=== PATIENT | male | born 1965 | race Caucasian/White ===

== ENCOUNTER 2018-05-30 18:03 | Inpatient (IN) | payer BC ==
[~2018-05-30] VITALS: Ht 188 cm; Wt 85.7 kg
[2018-05-30 18:06] VITALS: BP_SYST 180
[2018-05-30] MEDS ORDERED: NACL 0.9% 1,000 ML IV ONE ×2 (18:13→21:15)
[2018-05-30] MEDS ORDERED: ONDANSETRON HCL 4 MG/2 ML VIAL IVP ONE (18:15)
[2018-05-30] MEDS ORDERED: FOLIC ACID 1 MG, THIAMINE HCL 100 MG, MAGNESIUM SULFATE 1 GM, MVI 10 ML in NACL 0.9% 1,... IV ONE (18:30)
[2018-05-30] MEDS ORDERED: THIAMINE HCL 100 MG/ML VIAL ONE (18:31)
[2018-05-30] MEDS ORDERED: FOLIC ACID 5 MG/ML VIAL IV ONE (18:31)
[2018-05-30] MEDS ORDERED: MVI 10 ML VIAL IV ONE (18:31)
[2018-05-30] MEDS ORDERED: MAGNESIUM SULFATE 1 GM/2 ML VIAL ONE (18:31)
[2018-05-30 18:46] LABS: HEMATOCRIT 39.3 % (36-54); HEMOGLOBIN 13.1 g/dL (14.0-18.0); MEAN CORPUSCULAR HEMOGLOBIN 37 pg (27-31); MEAN CORPUSCULAR HGB CONC 34 % (32-36); MEAN CORPUSCULAR VOLUME 111 fL (79.0-98.0); PLATELET COUNT (AUTO) 134 K/uL (130-430); RED BLOOD CELL COUNT(AUTO) 3.53 MIL/uL (4.2-6.2); RED CELL DISTRIBUTION WIDTH 15.6 % (9.0-15.0); WHITE BLOOD COUNT (AUTO) 5.7 K/uL (4.8-10.8)
[2018-05-30 18:51] LABS: BILIRUBIN,URINE 1+ (NEGATIVE); CLARITY/URINE SL HAZY (CLEAR); GLUCOSE,URINE NEGATIVE (NEGATIVE); KETONES,URINE NEGATIVE (NEGATIVE); LEUKOCYTE ESTERASE ,URINE NEGATIVE (NEGATIVE); NITRITE, URINE NEGATIVE (NEGATIVE); PH,URINE 6.5 (5.0-8.0); PROTEIN URINE 2+ (NEGATIVE)
[2018-05-30 18:58] LABS: INR 1.1 (0.80-1.20); PROTHROMBIN TIME 11.3 SECS (9.5-12.5)
[2018-05-30 19:02] LABS: BLOOD, URINE TRACE (NEGATIVE); UROBILINOGEN,URINE >=8 (0.2-1.0)
[2018-05-30 19:11] LABS: COLOR,URINE ORANGE (YELLOW)
[2018-05-30 19:24] LABS: CALCIUM 8.6 mg/dL (8.4-11.0); CREATININE 0.77 mg/dL (0.55-1.30); POTASSIUM 3.7 mmol/L (3.5-5.1)
[2018-05-30 19:28] LABS: TOTAL BILIRUBIN 2.1 mg/dL (0.0-1.0)
[2018-05-30] MEDS ORDERED: NS 1000 ML IV.SOLN IV ONE (19:45)
[2018-05-30] MEDS ORDERED: PIPERACILLIN/TAZO 3.38 GM in D5W 50 ML IV ONE (19:45)
[2018-05-30 19:46] LABS: BAND % (MANUAL) 11 % (0-6); BASOPHILS % (MANUAL) 0 % (0-2); EOSINOPHILS % (MANUAL) 1 % (0-7); LYMPHOCYTES % (MANUAL) 17 % (20-46); MONOCYTES % (MANUAL) 9 % (0-11)
[2018-05-30] MEDS ORDERED: PIPERACILLIN/TAZOBACTAM 3.375 GM/VIAL (ZOSYN) IV ONE (20:00)
[2018-05-30] MEDS ORDERED: LORazepam 2 MG/ML VIAL (FOR ER USE) IVP ONE (20:15)
[2018-05-30 20:17] LABS: BACTERIA,URINE FEW /HPF (None Seen); FINE GRANULAR CASTS,URINE 0-10 /LPF (None Seen); RBC,URINE 0-3 /HPF (0-3); WAXY CASTS,URINE 0-10 /LPF (None Seen)
[2018-05-30 20:18] LABS: MUCUS,URINE 1+ /LPF (None Seen)
[2018-05-30] MEDS ORDERED: chlordiazePOXIDE HCL 25 MG CAPSULE PO PRN (21:00)
[2018-05-30] MEDS ORDERED: cloNIDine HCL 0.1 MG TABLET PO PRN (21:00)
[2018-05-30] MEDS ORDERED: LACTULOSE 20 GM/30 ML UDC PO ONE (21:30)
[2018-05-30 21:43] VITALS: BP_SYST 120
[2018-05-30 22:13] LABS: BARBITURATE, URINE NEGATIVE (NEG <=200); BENZODIAZEPINE, URINE NEGATIVE (NEG <=150); CANNABINOID, URINE NEGATIVE (NEG <=50); COCAINE, URINE NEGATIVE (NEG <=150); METHAMPHETAMINES SCREEN,URINE NEGATIVE (NEG <=500); OPIATE, URINE NEGATIVE (NEG <=100); PHENCYCLIDINE SCREEN,URINE NEGATIVE (NEG <=25); UR TRICYCLIC ANTIDEPRESSANTS NEGATIVE (NEG <=300); URINE AMPHETAMINE NEGATIVE (NEG <=500); URINE METHADONE NEGATIVE (NEG <=200); URINE OXYCODONE SCREEN NEGATIVE (NEG <=100); URINE PROPOXYPHENE SCREEN NEGATIVE (NEG <=300)
[2018-05-30] MEDS: LORazepam 2 MG/ML VIAL IVP PRN (23:05)
[2018-05-31] MEDS ORDERED: PIPERACILLIN/TAZOBACTAM 3.375 GM/VIAL (ZOSYN) IV ONE (00:26)
[2018-05-31] MEDS: PIPERACILLIN/TAZO 3.375/DEX-IS 50 ML IV SCH ×5 (00:53→23:10)
[2018-05-31] MEDS: LORazepam 2 MG/ML VIAL IVP PRN (05:21)
[2018-05-31 08:28] LABS: BASOPHILS % (AUTO) 0.3 % (0.0-2.0); EOSINOPHILS % (AUTO) 0.5 % (0.0-4.0); HEMATOCRIT 35.5 % (36-54); HEMOGLOBIN 12.1 g/dL (14.0-18.0); LYMPHOCYTES # (AUTO) 0.5 K/uL (1.0-5.5); LYMPHOCYTES % (AUTO) 12.4 % (20.5-51.5); MEAN CORPUSCULAR HEMOGLOBIN 39 pg (27-31); MEAN CORPUSCULAR HGB CONC 34 % (32-36); MEAN CORPUSCULAR VOLUME 113 fL (79.0-98.0); MONOCYTES # (AUTO) 0.4 K/uL (0.0-1.0); MONOCYTES % (AUTO) 10.3 % (1.7-9.3); NEUTROPHILS # (AUTO) 3.1 K/uL (1.8-7.7); NEUTROPHILS % (AUTO) 76.5 % (40.0-70.0); PLATELET COUNT (AUTO) 125 K/uL (130-430); RED BLOOD CELL COUNT(AUTO) 3.14 MIL/uL (4.2-6.2); RED CELL DISTRIBUTION WIDTH 15.8 % (9.0-15.0)
[2018-05-31 08:39] LABS: CREATININE 0.7 mg/dL (0.55-1.30); POTASSIUM 3.6 mmol/L (3.5-5.1)
[2018-05-31 08:53] LABS: ALBUMIN 2.7 g/dL (3.4-4.8); TOTAL BILIRUBIN 2.7 mg/dL (0.0-1.0)
[2018-05-31 09:14] LABS: CALCIUM 8.5 mg/dL (8.4-11.0)
[2018-05-31] MEDS: THIAMINE HCL 100 MG TABLET PO SCH (09:25)
[2018-05-31] MEDS: FOLIC ACID 1 MG TABLET PO SCH (09:25)
[2018-05-31 13:17] VITALS: BP_SYST 142
[2018-05-31] MEDS ORDERED: LORazepam 2 MG/ML VIAL IVP PRN (15:00)
[2018-05-31 16:36] VITALS: BP_SYST 148
[2018-05-31] MEDS: FOLIC ACID 1 MG, THIAMINE HCL 100 MG, MAGNESIUM SULFATE 1 GM, MVI 10 ML in NACL 0.9% 1,... IV SCH (18:15)
[2018-05-31] MEDS: chlordiazePOXIDE HCL 25 MG CAPSULE PO SCH ×2 (18:16→23:31)
[2018-05-31] MEDS: LIPASE/PROTEASE/AMYLASE 1 CAP PO SCH (18:17)
[2018-05-31 19:00] VITALS: BP_SYST 148
[2018-05-31 20:00] VITALS: BP_SYST 148
[2018-05-31] MEDS: TEMAZEPAM 15 MG CAPSULE PO SCH (21:59)
[2018-06-01 00:32] VITALS: BP_SYST 119
[2018-06-01] MEDS: LORazepam 2 MG/ML VIAL IVP PRN ×2 (02:55→15:02)
[2018-06-01] MEDS: chlordiazePOXIDE HCL 25 MG CAPSULE PO SCH ×3 (06:00→17:57)
[2018-06-01 06:30] VITALS: BP_SYST 133
[2018-06-01] MEDS: PIPERACILLIN/TAZO 3.375/DEX-IS 50 ML IV SCH ×2 (06:58→11:48)
[2018-06-01 07:06] LABS: CALCIUM 8.5 mg/dL (8.4-11.0); CREATININE 0.68 mg/dL (0.55-1.30); POTASSIUM 3.6 mmol/L (3.5-5.1)
[2018-06-01 07:17] LABS: ALBUMIN 2.6 g/dL (3.4-4.8); TOTAL BILIRUBIN 2.1 mg/dL (0.0-1.0)
[2018-06-01 09:07] LABS: HEPATITIS A AB, IgM Negative (Negative); HEPATITIS B CORE AB, IgM Negative (Negative); HEPATITIS B SURFACE AG Negative (Negative)
[2018-06-01 09:14] VITALS: BP_SYST 133
[2018-06-01] MEDS: FOLIC ACID 1 MG TABLET PO SCH (09:17)
[2018-06-01] MEDS: THIAMINE HCL 100 MG TABLET PO SCH (09:17)
[2018-06-01] MEDS: LIPASE/PROTEASE/AMYLASE 1 CAP PO SCH ×3 (09:17→17:57)
[2018-06-01 09:19] LABS: BASOPHILS # (AUTO) 0.1 K/uL (0.0-0.2); EOSINOPHILS % (AUTO) 0.7 % (0.0-4.0); HEMATOCRIT 35.8 % (36-54); HEMOGLOBIN 12.1 g/dL (14.0-18.0); LYMPHOCYTES # (AUTO) 0.8 K/uL (1.0-5.5); LYMPHOCYTES % (AUTO) 17.3 % (20.5-51.5); MEAN CORPUSCULAR HEMOGLOBIN 39 pg (27-31); MEAN CORPUSCULAR HGB CONC 34 % (32-36); MONOCYTES # (AUTO) 0.6 K/uL (0.0-1.0); MONOCYTES % (AUTO) 12.3 % (1.7-9.3); NEUTROPHILS # (AUTO) 3.2 K/uL (1.8-7.7); NEUTROPHILS % (AUTO) 67.7 % (40.0-70.0); PLATELET COUNT (AUTO) 147 K/uL (130-430); RED BLOOD CELL COUNT(AUTO) 3.11 MIL/uL (4.2-6.2); RED CELL DISTRIBUTION WIDTH 16.2 % (9.0-15.0); WHITE BLOOD COUNT (AUTO) 4.7 K/uL (4.8-10.8)
[2018-06-01 11:48] LABS: MEAN CORPUSCULAR VOLUME 115 fL (79.0-98.0)
[2018-06-01 12:44] VITALS: BP_SYST 128
[2018-06-01] MEDS ORDERED: NICOTINE 21 MG/24 HR PATCH.TD24 TD ONE (16:15)
[2018-06-01 16:18] VITALS: BP_SYST 127
[2018-06-01] MEDS: FOLIC ACID 1 MG, THIAMINE HCL 100 MG, MAGNESIUM SULFATE 1 GM, MVI 10 ML in NACL 0.9% 1,... IV SCH (16:31)
[2018-06-01 20:10] VITALS: BP_SYST 149
[2018-06-01] MEDS: TEMAZEPAM 15 MG CAPSULE PO SCH (22:13)
[2018-06-02] MEDS: chlordiazePOXIDE HCL 25 MG CAPSULE PO SCH ×4 (00:01→18:09)
[2018-06-02 05:01] VITALS: BP_SYST 148
[2018-06-02 07:00] LABS: ALBUMIN 2.9 g/dL (3.4-4.8); CALCIUM 8.6 mg/dL (8.4-11.0); CREATININE 0.57 mg/dL (0.55-1.30); POTASSIUM 3.3 mmol/L (3.5-5.1); TOTAL BILIRUBIN 2.3 mg/dL (0.0-1.0)
[2018-06-02 07:30] LABS: LYMPHOCYTES # (AUTO) 0.6 K/uL (1.0-5.5)
[2018-06-02 07:31] LABS: HEMOGLOBIN 13.3 g/dL (14.0-18.0); MONOCYTES # (AUTO) 0.6 K/uL (0.0-1.0)
[2018-06-02 07:34] LABS: BASOPHILS % (AUTO) 0.5 % (0.0-2.0); EOSINOPHILS % (AUTO) 0.6 % (0.0-4.0); HEMATOCRIT 40.2 % (36-54); LYMPHOCYTES % (AUTO) 12.7 % (20.5-51.5); MEAN CORPUSCULAR HEMOGLOBIN 38 pg (27-31); MEAN CORPUSCULAR HGB CONC 33 % (32-36); MEAN CORPUSCULAR VOLUME 115 fL (79.0-98.0); NEUTROPHILS # (AUTO) 3.5 K/uL (1.8-7.7); NEUTROPHILS % (AUTO) 73.2 % (40.0-70.0); PLATELET COUNT (AUTO) 184 K/uL (130-430); RED CELL DISTRIBUTION WIDTH 16.3 % (9.0-15.0); WHITE BLOOD COUNT (AUTO) 4.7 K/uL (4.8-10.8)
[2018-06-02 08:00] VITALS: BP_SYST 126
[2018-06-02] MEDS ORDERED: NICOTINE 21 MG/24 HR PATCH.TD24 TD SCH (09:00)
[2018-06-02] MEDS: FOLIC ACID 1 MG TABLET PO SCH (09:16)
[2018-06-02] MEDS: THIAMINE HCL 100 MG TABLET PO SCH (09:16)
[2018-06-02] MEDS: LIPASE/PROTEASE/AMYLASE 1 CAP PO SCH ×3 (09:16→18:09)
[2018-06-02] MEDS ORDERED: POTASSIUM CHLORIDE 20 MEQ TAB.PRT.SR PO ONE (09:45)
[2018-06-02 16:30] VITALS: BP_SYST 151
[2018-06-02] MEDS: FOLIC ACID 1 MG, THIAMINE HCL 100 MG, MAGNESIUM SULFATE 1 GM, MVI 10 ML in NACL 0.9% 1,... IV SCH (16:45)
[2018-06-02] MEDS ORDERED: TEMA30CA5 PO (16:46)
[2018-06-02] MEDS ORDERED: LIB25 PO ×4 (16:47→17:07)
[2018-06-02] MEDS ORDERED: FOLI-43 PO (17:08)
[2018-06-02] MEDS ORDERED: THIA50TA10 PO (17:18)
[2018-06-02] MEDS ORDERED: MULT-1184 PO (17:19)
[2018-06-02] MEDS ORDERED: CEPH-568 PO (17:19)
[2018-06-02 17:24] VITALS: BP_SYST 151
== END 2018-06-02 19:12 | disposition home health service (06) | DRG 433 ==
LOC: SED 18:03 → STU 21:02
PROVIDERS: ADMIT Internal Medicine; ATTEND Internal Medicine
DX: K70.10 Alcoholic hepatitis without ascites (principal); E87.2 Acidosis; E87.1 Hypo-osmolality and hyponatremia; F10.231 Alcohol dependence with withdrawal delirium; E44.0 Moderate protein-calorie malnutrition; N39.0 Urinary tract infection, site not specified; F10.229 Alcohol dependence with intoxication, unspecified; F40.240 Claustrophobia; R56.9 Unspecified convulsions; K72.90 Hepatic failure, unspecified without coma; G62.1 Alcoholic polyneuropathy; D72.825 Bandemia; K76.0 Fatty (change of) liver, not elsewhere classified; Z68.24 Body mass index [BMI] 24.0-24.9, adult; Z87.891 Personal history of nicotine dependence
CPT/HCPCS: 36415; 70450-TC; 71045; 80053; 80074; 80307; 81000-TC; 82105; 82140-TC; 82150-TC; 82550-TC; 83605; 83690-TC; 83735-TC; 84484; 85007; 85025; 85027; 85610-TC; 85651-TC; 85730-TC; 87040-TC; 93005; 95816; 96361; 96365; 96375; 97116-GP; 97530-GP; 99291; G0378; G0482; J2060; J2405; J2543; J3411; J3475; J3490; J7030